=== PATIENT | female | born 1955 | race African-American/Black ===

== ENCOUNTER 2016-05-05 19:34 | Emergency (ER) | payer OTHER, MEDICARE, BC ==
[2016-05-05 19:49] VITALS: TEMP 98.1; BMI 27.4
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
[2016-05-05] MEDS ORDERED: Pharmacy Review for Metformin - IV Contrast Given SCH (20:00)
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
[2016-05-05 20:28] LABS: AUTOMATED BASOPHIL 0.7 % (0-2); AUTOMATED EOSINOPHIL 0.1 % (0-5); AUTOMATED LYMPH 8.3 % (17-44); AUTOMATED MONOCYTE 4.9 % (3-10); MPV 10.6 fL (7.4-10.4)
[2016-05-05 20:44] LABS: PARTIAL THROMB. TIME 28.7 SEC (22-35); PT-INR 2.9
[2016-05-05] MEDS ORDERED: OXYCODONE HCL 5 MG TABLET PO ONE ×2 (20:45→21:34)
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
[2016-05-05 22:26] VITALS: BP 149/82; PULSE 84
== END 2016-05-05 22:23 | disposition home or self-care (01) ==
LOC: ED 19:34
DX: S60.212A Contusion of left wrist, initial encounter (principal); S30.1XXA Contusion of abdominal wall, initial encounter; V49.40XA Driver injured in collision with unspecified motor vehicles in traffic accident, initial encounter; F17.200 Nicotine dependence, unspecified, uncomplicated; I12.0 Hypertensive chronic kidney disease with stage 5 chronic kidney disease or end stage renal disease; E11.22 Type 2 diabetes mellitus with diabetic chronic kidney disease; N18.6 End stage renal disease; I50.9 Heart failure, unspecified; Z95.2 Presence of prosthetic heart valve; J44.9 Chronic obstructive pulmonary disease, unspecified; J45.909 Unspecified asthma, uncomplicated; K21.9 Gastro-esophageal reflux disease without esophagitis; Z99.2 Dependence on renal dialysis; Z79.01 Long term (current) use of anticoagulants; Z79.899 Other long term (current) drug therapy; R55 Syncope and collapse
CPT/HCPCS: 29125; 36415; 70450; 71020; 72125; 73110; 74176; 85025; 85610; 85730; 99284; J3490